=== PATIENT | female | born 1975 | race Two or more races ===

== ENCOUNTER 2024-04-29 04:53 | Day surgery (SDC) | payer OTHER ==
[2024-04-28 10:45] VITALS: BMI 26.5
[2024-04-29 08:18] VITALS: TEMP 98.7
[2024-04-29 08:51] VITALS: BP 102/77; PULSE 68; RESP 100
== END 2024-04-29 08:57 | disposition home or self-care (01) ==
LOC: JASU-ENDO 04:53
PROVIDERS: ATTEND Internal Medicine Gastroenterology
PROC: 0DJD8ZZ Inspection of Lower Intestinal Tract, Via Natural or Artificial Opening Endoscopic (ICD-10-PCS; principal; 2024-04-29 08:00)
DX: Z12.11 Encounter for screening for malignant neoplasm of colon (principal); K64.8 Other hemorrhoids
CPT/HCPCS: 81025